=== PATIENT | female | born 1975 | race Hispanic/Latino ===

== ENCOUNTER 2017-01-19 07:10 | Day surgery (SDC) | payer OTHER ==
[2017-01-11 06:45] VITALS: BMI 27.8
[2017-01-19 07:55] LABS: BASO # 0.01 K/mm3 (0.0-2.0); BASO % 0.1 % (0.0-3.0); EOS # 0.2 (0.0-0.7); EOS % 2.4 % (1.5-5.0); GRAN # 4.34 (1.4-6.5); GRAN % 64.5 % (50.0-68.0); HEMATOCRIT 38.4 % (36.0-48.0); LYMPH # 1.9 (1.2-3.4); LYMPH % 27.7 % (22.0-35.0); MEAN CELL VOLUME 86.7 fl (80.0-105.0); MEAN CORPUSCULAR HEMOGLOBIN 29.8 pg (25.0-35.0); MEAN CORPUSCULAR HGB CONC 34.4 g/dl (31.0-37.0); MEAN PLATELET VOLUME 10.2 fl (7.0-11.0); MONO # 0.4 (0.1-0.6); MONO % 5.3 % (1.0-6.0); RED CELL DISTRIBUTION WIDTH 13.2 % (11.5-14.5); WHITE BLOOD COUNT 6.7 10^3/ul (4.5-11.0)
[2017-01-19 08:01] LABS: BLOOD UREA NITROGEN 21 mg/dL (7-21); CALCIUM 9.6 mg/dL (8.4-10.5); CARBON DIOXIDE 24 mmol/L (21-33); CHLORIDE 107 mmol/L (98-107); GFR AFRICAN-AMERICAN > 60; GLUCOSE,RANDOM 100 mg/dL (70-110); POTASSIUM 4.1 mmol/L (3.6-5.0); SODIUM 143 mmol/L (132-148)
[2017-01-19 08:12] LABS: INR 1.06 (0.93-1.08); PARTIAL THROMBOPLASTIN TIME 27.4 Seconds (25.1-36.5)
[2017-01-19] MEDS ORDERED: Labetalol 5 mg/ml Inj 20ML ONE (09:59)
[2017-01-19] MEDS ORDERED: Midazolam 2 MG/2 ML VIAL ONE (10:01)
[2017-01-19] MEDS ORDERED: Oxycodone/Acetaminophen 5/325 mg Tab PO PRN (11:21)
[2017-01-19] MEDS ORDERED: Sodium Chloride 0.45% 1,000 ML IV SCH (11:30)
[2017-01-19 12:07] VITALS: O2SAT 98
[2017-01-19 12:25] VITALS: TEMP 98.5
--- NOTE | 2017-01-19 12:26 | US ---
PROCEDURE: Ultrasound-guided right thyroid fine needle aspiration biopsy. CLINICAL HISTORY: 1.8 cm hypervascular dominant right thyroid nodule. Family history thyroid carcinoma. Evaluate for malignancy PHYSICIAN(S): Isaac Gallo M.D. TECHNIQUE: The relative risks and indications for the procedure were explained to the patient and consent obtained. The patient was placed supine on the stretcher with the neck extended and preliminary sonography of the thyroid performed. This reveal well-defined 1.8 cm hypoechoic nodule in the mid right thyroid. The neck was prepped and draped in the usual sterile fashion. Conscious sedation and monitoring were provided throughout the procedure by a nurse. 1% Xylocaine was used to anesthetize the skin and soft tissues at the access site. Three passes with a 22-gauge needle were performed under ultrasound guidance for fine needle aspiration of the 1.8 cm hypoechoic nodule in the right thyroid. The slides were reviewed by pathology and deemed adequate. The patient tolerated the procedure well. IMPRESSION: 1. Ultrasound guided fine needle aspiration of a 1.8 cm hypoechoicnodule in the right thyroid.
[2017-01-19 12:59] VITALS: BP 130/67; PULSE 82; RESP 20
== END 2017-01-19 13:30 | disposition home or self-care (01) ==
LOC: SDS 07:10
PROVIDERS: ATTEND Radiology Vascular & Interventional Radiology
DX: E04.1 Nontoxic single thyroid nodule (principal); Z80.8 Family history of malignant neoplasm of other organs or systems

== ENCOUNTER 2018-05-06 14:19 | Outpatient (CLI) | payer OTHER | END 2018-05-06 14:20 | disposition home or self-care (01) | LOC: RAD 14:19 ==